=== PATIENT | female | born 1935 | race Caucasian/White ===

== ENCOUNTER → 2016-06-12 | Outpatient (CLI) | payer MEDICARE | LOC: US 13:24 | DX: E04.1 Nontoxic single thyroid nodule (principal) | CPT/HCPCS: 76536 ==

== ENCOUNTER → 2020-08-05 | Outpatient (CLI) | payer MEDICARE | LOC: EXRD 13:38 | DX: I77.9 Disorder of arteries and arterioles, unspecified (principal); R09.89 Other specified symptoms and signs involving the circulatory and respiratory systems; I63.9 Cerebral infarction, unspecified | CPT/HCPCS: 93880 ==

== ENCOUNTER 2020-12-20 03:57 | Inpatient (IN) | payer MEDICARE ==
[~2020-12-20] VITALS: Ht 160 cm; Wt 85.3 kg
[2020-12-20 04:22] LABS: HEMOGLOBIN 14.7 gm/dl (12.3-15.3); RED BLOOD COUNT 4.84 M/UL (4.00-5.10); WHITE BLOOD COUNT 28.4 K/UL (4.5-11.0)
[2020-12-20 04:50] LABS: BUN/CREATININE RATIO 29 (0-10)
[2020-12-20] MEDS ORDERED: FUROSEMIDE20 MG PO (10:12)
[2020-12-20] MEDS ORDERED: FUROSEMIDE40 MG PO (10:14)
[2020-12-20] MEDS ORDERED: METOPROLOL SUC100 MG PO (10:15)
[2020-12-20] MEDS ORDERED: AMLODIPINE BESY10 MG PO (10:17)
[2020-12-20] MEDS ORDERED: CITALOPRAM HBR10 MG PO (10:17)
[2020-12-20] MEDS ORDERED: GLUCOTROL 10 MG10 MG PO (10:18)
[2020-12-20] MEDS ORDERED: ANTIVERT 12.512.5 MG PO (10:19)
[2020-12-20] MEDS ORDERED: FEROSUL325 MG PO (10:20)
[2020-12-20] MEDS ORDERED: PLETAL 100 MG100 MG PO (10:22)
[2020-12-20] MEDS ORDERED: SPIRONOLACTONE25 MG PO (10:23)
[2020-12-20] MEDS ORDERED: JANUVIA 50 MG T50 MG PO (10:24)
[2020-12-20] MEDS ORDERED: CLARITIN 10MG T10 MG PO (10:25)
[2020-12-20] MEDS ORDERED: ASPIRIN EC81 MG PO (10:26)
[2020-12-20] MEDS ORDERED: VITAMIN D325 MC6 PO (10:28)
[2020-12-20] MEDS ORDERED: PROTONIX 40 MG40 M1 PO (10:28)
[2020-12-20] MEDS ORDERED: FLONASE 0.05% N16 GM (10:30)
[2020-12-20] MEDS ORDERED: HYDROXYZINE HCL25 MG PO (10:31)
[2020-12-20] MEDS ORDERED: ULTRAM50 MG PO (10:32)
[2020-12-20] MEDS ORDERED: ZETIA10 MG PO (13:48)
[2020-12-21 07:03] LABS: HEMOGLOBIN 12.6 gm/dl (12.3-15.3); RED BLOOD COUNT 4.25 M/UL (4.00-5.10)
[2020-12-22 07:23] LABS: RED BLOOD COUNT 4.14 M/UL (4.00-5.10); WHITE BLOOD COUNT 15.3 K/UL (4.5-11.0)
[2020-12-23 06:41] LABS: HEMOGLOBIN 12.8 gm/dl (12.3-15.3); RED BLOOD COUNT 4.25 M/UL (4.00-5.10); WHITE BLOOD COUNT 14.3 K/UL (4.5-11.0)
[2020-12-23] MEDS ORDERED: FUROSEMIDE20 MG PO (13:11)
[2020-12-23] MEDS ORDERED: OMNICEF 300 MG300 MG PO (13:11)
--- NOTE | 2020-12-23 18:49 | NUR ---
PATIENT HAD RA O2 SAT AT 85%
[2020-12-24 07:06] LABS: HEMOGLOBIN 12.3 gm/dl (12.3-15.3); RED BLOOD COUNT 4.13 M/UL (4.00-5.10)
== END 2020-12-24 16:08 | disposition home or self-care (01) | DRG 871 ==
LOC: ER1 03:57 → MED SURG 4 05:12 → CDU 05:12 → MED SURG 4 19:30
PROVIDERS: Family Medicine; Internal Medicine; ADMIT Internal Medicine
PROC: B24BZZ4 Ultrasonography of Heart with Aorta, Transesophageal (ICD-10-PCS; principal; 2020-12-20)
DX: A41.9 Sepsis, unspecified organism (principal); J18.9 Pneumonia, unspecified organism; J96.01 Acute respiratory failure with hypoxia; I13.0 Hypertensive heart and chronic kidney disease with heart failure and stage 1 through stage 4 chronic kidney disease, or unspecified chronic kidney disease; N18.4 Chronic kidney disease, stage 4 (severe); Z20.822 Contact with and (suspected) exposure to COVID-19; I50.9 Heart failure, unspecified; E66.9 Obesity, unspecified; E11.22 Type 2 diabetes mellitus with diabetic chronic kidney disease; Z79.01 Long term (current) use of anticoagulants; Z79.82 Long term (current) use of aspirin; Z95.2 Presence of prosthetic heart valve; Z79.4 Long term (current) use of insulin; Z90.710 Acquired absence of both cervix and uterus; Z88.5 Allergy status to narcotic agent; Z88.2 Allergy status to sulfonamides; Z88.8 Allergy status to other drugs, medicaments and biological substances; Z87.891 Personal history of nicotine dependence; Z68.35 Body mass index [BMI] 35.0-35.9, adult
CPT/HCPCS: ECHO; 36415; 36600; 51702; 71045; 80048; 80053; 82550; 82553; 82803; 82962; 83605; 83874; 83880; 84484; 85025; 85610; 87040; 93005; 93306; 96374; 97161; 99285; A6212; J0456; J0696; J1644; J1940; J2543; J7030; U0002

== ENCOUNTER 2020-12-26 18:08 | Inpatient (IN) | payer MEDICARE ==
[~2020-12-26] VITALS: Ht 160 cm; Wt 89.1 kg
[~2020-12-26 18:08] MED LIST: AMLODIPINE BESY10 MG PO; ANTIVERT 12.512.5 MG PO; ASPIRIN EC81 MG PO; CITALOPRAM HBR10 MG PO; CLARITIN 10MG T10 MG PO; FEROSUL325 MG PO; FUROSEMIDE20 MG PO; FUROSEMIDE40 MG PO; GLUCOTROL 10 MG10 MG PO; HYDROXYZINE HCL25 MG PO; OMNICEF 300 MG300 MG PO; PLETAL 100 MG100 MG PO; PROTONIX 40 MG40 M1 PO; SPIRONOLACTONE25 MG PO; ULTRAM50 MG PO; VITAMIN D325 MC6 PO
[2020-12-26 19:55] LABS: HEMOGLOBIN 14.4 gm/dl (12.3-15.3); RED BLOOD COUNT 4.78 M/UL (4.00-5.10); WHITE BLOOD COUNT 21.8 K/UL (4.5-11.0)
[2020-12-26 20:40] LABS: BUN/CREATININE RATIO 33 (0-10)
[2020-12-28 07:50] LABS: WHITE BLOOD COUNT 16.8 K/UL (4.5-11.0)
[2020-12-28 07:58] LABS: HEMOGLOBIN 11.5 gm/dl (12.3-15.3); RED BLOOD COUNT 3.85 M/UL (4.00-5.10)
[2020-12-29 04:02] LABS: HEMOGLOBIN 11.3 gm/dl (12.3-15.3); RED BLOOD COUNT 3.83 M/UL (4.00-5.10); WHITE BLOOD COUNT 13.1 K/UL (4.5-11.0)
[2020-12-30 06:45] LABS: HEMOGLOBIN 11.4 gm/dl (12.3-15.3); RED BLOOD COUNT 3.79 M/UL (4.00-5.10); WHITE BLOOD COUNT 12.1 K/UL (4.5-11.0)
[2020-12-31 07:14] LABS: HEMOGLOBIN 11.4 gm/dl (12.3-15.3); RED BLOOD COUNT 3.97 M/UL (4.00-5.10)
--- NOTE | 2021-01-01 13:45 | NUR ---
RN AND STAFF WITNESSED DR. CALDERÓN PERFORM THORACENTESIS AT BEDSIDE AFTER EXPLAINING PROCEDURE AND OBTAINING CONSENT FROM PATIENT. MD COLLECTED 500 ML DARK BROWN FLUID FROM THORACIC CAVITY. MD PLACED PRESSURE DRESSING TO INSERTION SITE. NO BLEEDING NOTED TO DRESSING EXTERIOR. NO S/SX OF PAIN OR DISTRESS. CHEST X-RAY ORDERED BY HOLDEN CARMEN, SPECIMEN OBTAINED AND CORRECTLY LABELED. BED LOCKED AND LOW. CALL LIGHT WITHIN REACH.
[2021-01-01 17:29] LABS: BODY FLUID SOURCE PLEURAL
[2021-01-01 17:30] LABS: MONONUCLEAR CELLS 85 (75-100); POLYMORPHONUCLEAR % 15 (0-25); RBC (AUTOMATED) 9800 (0-100000); WBC (AUTOMATED) 990 (0-500)
[2021-01-01 17:47] LABS: LDH, BODY FLUID 162 U/L; TOTAL PROTEIN, BODY FLUID 1.9 gm/dL
[2021-01-02 08:28] LABS: HEMOGLOBIN 12.3 gm/dl (12.3-15.3); RED BLOOD COUNT 4.12 M/UL (4.00-5.10); WHITE BLOOD COUNT 11.6 K/UL (4.5-11.0)
[2021-01-03 06:40] LABS: HEMOGLOBIN 12.3 gm/dl (12.3-15.3); RED BLOOD COUNT 4.19 M/UL (4.00-5.10); WHITE BLOOD COUNT 10.9 K/UL (4.5-11.0)
[2021-01-03 14:45] LABS: ADENOVIRUS F 40/41 Not Detected (Negative); ASTROVIRUS Not Detected (Negative); CAMPYLOBACTER Not Detected (Negative); CLOSTRIDIUM DIFFICILE TOX A/B Not Detected (Negative); CRYPTOSPORIDIUM Not Detected (Negative); E.COLI 0157 Not Detected (Negative); ENTAMOEBA HISTOLYTICA Not Detected (Negative); ENTEROAGGREGATIVE E.COLI (EAEC Not Detected (Negative); ENTEROPATHOGENIC E.COLI (EPEC) Not Detected (Negative); ENTEROTOXIGENIC E.COLI (ETEC) Not Detected (Negative); GIARDIA LAMBLIA Not Detected (Negative); NOROVIRUS GI/GII Not Detected (Negative); PLESIOMONAS SHIGELLOIDES Not Detected (Negative); ROTOVIRUS A Not Detected (Negative); SALMONELLA Not Detected (Negative); SAPOVIRUS Not Detected (Negative); SHIG/ENTEROINVAS.ECOLI (EIEC) Not Detected (Negative); SHIGA-LIK TOX.PRO.E.COLI (STEC Not Detected (Negative); VIBRIO Not Detected (Negative); VIBRIO CHOLERAE Not Detected (Negative); YERSINIA ENTEROCOLITICA Not Detected (Negative)
[2021-01-04 06:42] LABS: HEMOGLOBIN 13.1 gm/dl (12.3-15.3); RED BLOOD COUNT 4.39 M/UL (4.00-5.10); WHITE BLOOD COUNT 12.2 K/UL (4.5-11.0)
[2021-01-04] MEDS ORDERED: LEVOFLOXACIN500 MG PO (09:56)
[2021-01-04] MEDS ORDERED: DOXYCYCLINE HY100 MG PO (09:59)
[2021-01-13] MEDS ORDERED: METOPROLOL SUC100 MG PO (10:15)
[2021-01-13] MEDS ORDERED: JANUVIA 50 MG T50 MG PO (10:24)
[2021-01-13] MEDS ORDERED: FLONASE 0.05% N16 GM (10:30)
== END 2021-01-04 13:13 | disposition home health service (06) | DRG 871 ==
LOC: ER1 18:08 → MED SURG 4 21:51 → CDU 21:51 → MED SURG 4 23:51
PROVIDERS: Internal Medicine; Physician Assistant; ADMIT Internal Medicine
PROC: 0W9B3ZZ Drainage of Left Pleural Cavity, Percutaneous Approach (ICD-10-PCS; principal; 2021-01-01)
DX: A41.50 Gram-negative sepsis, unspecified (principal); J15.6 Pneumonia due to other Gram-negative bacteria; Z20.822 Contact with and (suspected) exposure to COVID-19; Z66 Do not resuscitate; J96.21 Acute and chronic respiratory failure with hypoxia; I50.33 Acute on chronic diastolic (congestive) heart failure; J90 Pleural effusion, not elsewhere classified; I13.0 Hypertensive heart and chronic kidney disease with heart failure and stage 1 through stage 4 chronic kidney disease, or unspecified chronic kidney disease; N17.9 Acute kidney failure, unspecified; E87.6 Hypokalemia; E78.5 Hyperlipidemia, unspecified; D50.9 Iron deficiency anemia, unspecified; F32.9 Major depressive disorder, single episode, unspecified; J30.2 Other seasonal allergic rhinitis; D63.1 Anemia in chronic kidney disease; E66.9 Obesity, unspecified; I44.0 Atrioventricular block, first degree; E11.21 Type 2 diabetes mellitus with diabetic nephropathy; I65.22 Occlusion and stenosis of left carotid artery; E55.9 Vitamin D deficiency, unspecified; N18.30 Chronic kidney disease, stage 3 unspecified; E11.22 Type 2 diabetes mellitus with diabetic chronic kidney disease; Z79.01 Long term (current) use of anticoagulants; Z79.82 Long term (current) use of aspirin; Z95.2 Presence of prosthetic heart valve; Z87.891 Personal history of nicotine dependence; Z90.710 Acquired absence of both cervix and uterus; Z83.3 Family history of diabetes mellitus; Z79.4 Long term (current) use of insulin; Z90.49 Acquired absence of other specified parts of digestive tract; Z82.49 Family history of ischemic heart disease and other diseases of the circulatory system; Z91.048 Other nonmedicinal substance allergy status; Z68.34 Body mass index [BMI] 34.0-34.9, adult
CPT/HCPCS: 36415; 36600; 71045; 71250; 78579; 80048; 80053; 82550; 82553; 82728; 82803; 82962; 83605; 83615; 83735; 83874; 83880; 83986; 84100; 84132; 84157; 84484; 85025; 85027; 85379; 85384; 85652; 86140; 87040; 87070; 87205; 87507; 89051; 93005; 94640; 94664; 94760; 96365; 97110-GP-CQ; 97116; 97116-GP-CQ; 97162; 97165; 97530-GP-CQ; 97535; 99285; A9540; J0360; J0692; J1120; J1650; J1940; J2020; J2543; J3370; J3475; J7030; U0002

== ENCOUNTER 2021-01-13 11:49 | Emergency (ER) | payer MEDICARE ==
[~2021-01-13] VITALS: Ht 160 cm; Wt 83.9 kg
[~2021-01-13 11:49] MED LIST changes: +DOXYCYCLINE HY100 MG PO; +FLONASE 0.05% N16 GM; +JANUVIA 50 MG T50 MG PO; +LEVOFLOXACIN500 MG PO; +METOPROLOL SUC100 MG PO
[2021-01-13 12:50] LABS: HEMOGLOBIN 11.6 gm/dl (12.3-15.3); RED BLOOD COUNT 3.91 M/UL (4.00-5.10)
[2021-01-13 13:27] LABS: BUN/CREATININE RATIO 14 (0-10)
[2021-01-13] MEDS ORDERED: ZETIA10 MG PO (13:48)
[2021-01-13] MEDS ORDERED: FUROSEMIDE20 MG PO (17:33)
== END 2021-01-14 09:12 ==
LOC: ER1 11:49
PROVIDERS: Physician Assistant
DX: A41.9 Sepsis, unspecified organism (principal); J18.8 Other pneumonia, unspecified organism; I13.0 Hypertensive heart and chronic kidney disease with heart failure and stage 1 through stage 4 chronic kidney disease, or unspecified chronic kidney disease; I50.30 Unspecified diastolic (congestive) heart failure; N18.9 Chronic kidney disease, unspecified; J44.9 Chronic obstructive pulmonary disease, unspecified; Z90.710 Acquired absence of both cervix and uterus; E11.22 Type 2 diabetes mellitus with diabetic chronic kidney disease; Z20.822 Contact with and (suspected) exposure to COVID-19
CPT/HCPCS: 36600; 51702; 71045; 80048; 80053; 80202; 81001; 82550; 82553; 82803; 82962; 83605; 83874; 83880; 84484; 85025; 87040; 93005; 96365; 96375; 96376; 99285; J0692; J2185; J3370; J7030; J7050; J7070; U0002